=== PATIENT | male | born 1965 | race Two or more races ===

== ENCOUNTER 2017-04-02 10:04 | Inpatient (IN) | payer MEDICAID ==
[~2017-04-02] VITALS: Ht 177.8 cm; Wt 90.5 kg
[~2017-04-02 10:04] MED LIST: LISI-646 PO; METF-370 PO; MULTTAB61 PO; SACC250C PO; [UNRECOGNIZED DRUG - CODE] PO
[2017-04-02 10:44] LABS: Monocytes # (auto) 0.7 uL; Nucleated Red Blood Cells % 0.1 %; Red Cell Distribution Width 15.3 % (11.8-14.3)
[2017-04-02 10:46] LABS: Basophils # (auto) 0.1 uL; Eosinophils # (auto) 0.4 uL; Hematocrit 45.4 % (41.0-53.0); Hemoglobin 15.2 g/dL (13.5-17.5); Lymphocytes # (auto) 2.3 uL; Lymphocytes % (auto) 19.9 % (10.0-50.0); Mean Corpuscular Hemoglobin 26.5 pg (28.0-32.0); Mean Corpuscular Hgb Conc. 33.4 g/dL (32.0-36.0); Mean Corpuscular Volume 79.3 fL (80.0-100.0); Mean Platelet Volume 7.5 fL (6.9-10.8); Monocytes % (auto) 5.9 % (0.0-12.0); Neutrophils # (auto) 8.3 uL; Neutrophils % (auto) 70.2 % (37.0-80.0); Platelet Count (auto) 237 10^3/uL (140-450); White Blood Cell 11.8 10^3/uL (4.4-10.8)
[2017-04-02 11:03] LABS: Albumin 3.4 g/dL (3.4-5.0); Alkaline Phosphatase 131 U/L (45-117); Anion Gap 8 (5-15); Aspartate Aminotransferase 29 U/L (15-37); BUN/Creatinine Ratio 14.7; Bilirubin, Total 0.7 mg/dL (0.2-1.0); Blood Urea Nitrogen 16 mg/dL (7-18); Calcium 8.3 mg/dL (8.5-10.1); Carbon Dioxide 24 mmol/L (21-32); Chloride 103 mmol/L (98-107); GFR African American 92 mL/min; GFR Non-African American 76 mL/min; Glucose 273 mg/dL (74-106); Magnesium 2.4 mg/dL (1.6-2.6); Potassium 3.4 mmol/L (3.5-5.1); Sodium 135 mmol/L (136-145); Total Protein 8.2 g/dL (6.4-8.2)
[2017-04-02 13:49] LABS: B-Type Natriuretic Peptide 9.1 pg/mL (0-100); Temperature: 21.9 C (20.0-25.0)
[2017-04-02] MEDS ORDERED: IOHEXOL 350 MG/ML 100ML IJ ONE ×2 (14:24→15:11)
[2017-04-02] MEDS ORDERED: HEPARIN SODIUM (PORCINE) 5000 UNITS/ML 1ML VIAL IV ONE ×2 (16:45→17:15)
[2017-04-02] MEDS ORDERED: DEXTROSE (50%) 50ML SYRG IV PRN (17:30)
[2017-04-02] MEDS ORDERED: HYDROcodone-ACET 5/325MG TAB PO PRN (17:30)
[2017-04-02] MEDS ORDERED: LORazepam 0.5 MG TAB PO PRN (17:30)
[2017-04-02] MEDS ORDERED: PROMETHAZINE HCL 25 MG/ML 1ML IV PRN (17:30)
[2017-04-02] MEDS ORDERED: MORPHINE SULF INJ 2 MG/ML SYRINGE 1ML IV PRN ×2 (17:30)
[2017-04-02] MEDS ORDERED: TEMAZEPAM 15 MG CAP PO PRN (17:30)
[2017-04-02] MEDS ORDERED: ACETAMINOPHEN 500 MG TAB PO PRN (17:30)
[2017-04-02] MEDS ORDERED: NITROGLYCERIN 0.4 MG SL TAB SL PRN (17:30)
[2017-04-02] MEDS: HEPARIN DRIP/D5W 100UNITS/ML 250 ML IV SCH (17:51)
[2017-04-02] MEDS: LISINOPRIL 20 MG TAB PO SCH (17:53)
[2017-04-02] MEDS: PANTOPRAZOLE 40 MG TAB PO SCH (17:53)
[2017-04-02 18:36] LABS: INR 1.08 (0.9-1.15); Partial Thromboplastin Time 27.3 sec (22.64-33.71); Prothrombin Time 11.8 sec (9.37-12.3)
[2017-04-02] MEDS ORDERED: WARFARIN SODIUM 10 MG TAB PO ONE (19:15)
[2017-04-02] MEDS: InsuLIN REG 1unit/0.01ml Soln (100units/ml) SC SCH (20:00)
[2017-04-02] MEDS: ACCU-CHEK COMFORT CURVE STRIP VI SCH (20:00)
[2017-04-03] MEDS: ACCU-CHEK COMFORT CURVE STRIP VI SCH ×6 (00:25→22:03)
[2017-04-03] MEDS: InsuLIN REG 1unit/0.01ml Soln (100units/ml) SC SCH ×6 (00:28→22:11)
[2017-04-03 01:12] LABS: INR 1.09 (0.9-1.15); Partial Thromboplastin Time 32.5 sec (22.64-33.71); Prothrombin Time 11.9 sec (9.37-12.3)
[2017-04-03] MEDS: HEPARIN DRIP/D5W 100UNITS/ML 250 ML IV SCH ×2 (05:06→14:06)
[2017-04-03 06:33] LABS: Eosinophils # (auto) 0.4 uL; Hemoglobin 13.8 g/dL (13.5-17.5); Lymphocytes # (auto) 2.9 uL; Mean Platelet Volume 7.5 fL (6.9-10.8); Monocytes # (auto) 0.8 uL; Monocytes % (auto) 6.8 % (0.0-12.0); Nucleated Red Blood Cells % 0.1 %
[2017-04-03 06:35] LABS: Basophils # (auto) 0.1 uL; Basophils % (auto) 1.2 % (0.0-2.0); Eosinophils % (auto) 3.2 % (0.0-7.0); Hematocrit 41.4 % (41.0-53.0); Lymphocytes % (auto) 25.9 % (10.0-50.0); Mean Corpuscular Hemoglobin 26.7 pg (28.0-32.0); Mean Corpuscular Hgb Conc. 33.5 g/dL (32.0-36.0); Mean Corpuscular Volume 79.7 fL (80.0-100.0); Neutrophils # (auto) 7.1 uL; Neutrophils % (auto) 62.9 % (37.0-80.0); Platelet Count (auto) 235 10^3/uL (140-450); Red Cell Distribution Width 15.1 % (11.8-14.3); White Blood Cell 11.4 10^3/uL (4.4-10.8)
[2017-04-03 06:45] LABS: INR 1.14 (0.9-1.15); Partial Thromboplastin Time 36.6 sec (22.64-33.71); Prothrombin Time 12.4 sec (9.37-12.3)
[2017-04-03 07:11] LABS: Albumin 3.1 g/dL (3.4-5.0); BUN/Creatinine Ratio 12.3; Bilirubin, Total 0.8 mg/dL (0.2-1.0); Calcium 8.1 mg/dL (8.5-10.1); Potassium 3.4 mmol/L (3.5-5.1); Total Protein 7.3 g/dL (6.4-8.2)
[2017-04-03] MEDS: MULTIPLE VITAMIN TAB PO SCH (10:02)
[2017-04-03] MEDS: LISINOPRIL 20 MG TAB PO SCH (10:02)
[2017-04-03] MEDS: PANTOPRAZOLE 40 MG TAB PO SCH (10:02)
[2017-04-03 12:38] LABS: INR 1.24 (0.9-1.15); Partial Thromboplastin Time 32.1 sec (22.64-33.71); Prothrombin Time 13.6 sec (9.37-12.3)
[2017-04-03] MEDS ORDERED: HEPARIN SODIUM (PORCINE) 5000 UNITS/ML 1ML VIAL IV ONE (14:00)
[2017-04-03] MEDS ORDERED: DEXTROSE (50%) 50ML SYRG IV PRN (14:15)
[2017-04-03] MEDS ORDERED: ALBUTEROL SULF 2.5 MG/0.5ML(0.5%) NEB SOLN NEB PRN (14:15)
[2017-04-03 16:12] VITALS: BP 161/114
[2017-04-03] MEDS ORDERED: WARFARIN SODIUM 10 MG TAB PO ONE (17:00)
[2017-04-03 19:28] LABS: INR 1.46 (0.9-1.15); Partial Thromboplastin Time 43.1 sec (22.64-33.71)
[2017-04-03 21:31] LABS: Urine Bilirubin Negative (Negative); Urine Blood Negative /uL (Negative); Urine Color Yellow (Yellow); Urine Glucose Normal (Normal); Urine Ketone Negative (Negative); Urine Nitrite Negative (Negative); Urine RBC <1 /hpf (0 - 3); Urine Squamous Epithelial Cell FEW /hpf (<5); Urine Urobilinogen Normal (Negative); Urine pH 5.5 (5.0-8.0)
[2017-04-04] MEDS: HEPARIN DRIP/D5W 100UNITS/ML 250 ML IV SCH ×2 (01:09→11:23)
[2017-04-04 01:36] LABS: INR 1.96 (0.9-1.15); Partial Thromboplastin Time 53.9 sec (22.64-33.71); Prothrombin Time 21.5 sec (9.37-12.3)
[2017-04-04] MEDS: ACCU-CHEK COMFORT CURVE STRIP VI SCH ×4 (06:34→22:00)
[2017-04-04] MEDS: InsuLIN REG 1unit/0.01ml Soln (100units/ml) SC SCH ×3 (06:37→16:13)
[2017-04-04 08:19] LABS: Basophils # (auto) 0.1 uL; Basophils % (auto) 1.1 % (0.0-2.0); Hemoglobin 14.4 g/dL (13.5-17.5); Monocytes # (auto) 0.6 uL; Nucleated Red Blood Cells % 0.1 %
[2017-04-04 08:20] LABS: Eosinophils # (auto) 0.2 uL; Hematocrit 43.7 % (41.0-53.0); Lymphocytes # (auto) 2.7 uL; Lymphocytes % (auto) 24.7 % (10.0-50.0); Mean Corpuscular Hemoglobin 26.2 pg (28.0-32.0); Mean Corpuscular Volume 79.5 fL (80.0-100.0); Mean Platelet Volume 7.7 fL (6.9-10.8); Monocytes % (auto) 5.8 % (0.0-12.0); Neutrophils # (auto) 7.2 uL; Neutrophils % (auto) 66.4 % (37.0-80.0); Platelet Count (auto) 277 10^3/uL (140-450); Red Cell Distribution Width 15.2 % (11.8-14.3); White Blood Cell 10.8 10^3/uL (4.4-10.8)
[2017-04-04 08:38] LABS: BUN/Creatinine Ratio 10.7; Bilirubin, Total 0.5 mg/dL (0.2-1.0); Potassium 3.4 mmol/L (3.5-5.1); Total Protein 7.3 g/dL (6.4-8.2)
[2017-04-04 08:42] LABS: INR 2.57 (0.9-1.15); Partial Thromboplastin Time 56.5 sec (22.64-33.71); Prothrombin Time 28.3 sec (9.37-12.3)
[2017-04-04] MEDS: MULTIPLE VITAMIN TAB PO SCH (10:04)
[2017-04-04] MEDS: PANTOPRAZOLE 40 MG TAB PO SCH (10:05)
[2017-04-04] MEDS: LISINOPRIL 20 MG TAB PO SCH (10:05)
[2017-04-04] MEDS ORDERED: POTASSIUM CHL 20 Meq TABLET PO ONE (11:30)
[2017-04-04 16:12] LABS: INR 2.82 (0.9-1.15); Partial Thromboplastin Time 58.3 sec (22.64-33.71); Prothrombin Time 31.1 sec (9.37-12.3)
[2017-04-04] MEDS ORDERED: HEPARIN DRIP/D5W 100UNITS/ML 250 ML IV SCH (16:45)
[2017-04-04] MEDS ORDERED: WARFARIN SODIUM 2.5 MG TAB PO ONE (17:00)
[2017-04-04] MEDS: metFORMIN HYDROCHLORIDE 500 MG TAB PO SCH (17:08)
[2017-04-04 23:29] LABS: INR 3.06 (0.9-1.15); Prothrombin Time 33.7 sec (9.37-12.3)
[2017-04-05] MEDS: InsuLIN REG 1unit/0.01ml Soln (100units/ml) SC SCH ×5 (00:25→21:47)
[2017-04-05 00:50] VITALS: BP 113/64
[2017-04-05 05:15] LABS: Basophils # (auto) 0.1 uL; Eosinophils # (auto) 0.3 uL; Lymphocytes # (auto) 2.8 uL; Mean Corpuscular Volume 79.7 fL (80.0-100.0); Monocytes # (auto) 0.6 uL; Nucleated Red Blood Cells % 0.1 %
[2017-04-05 05:18] LABS: Basophils % (auto) 1.3 % (0.0-2.0); Eosinophils % (auto) 2.9 % (0.0-7.0); Hematocrit 41.5 % (41.0-53.0); Hemoglobin 13.8 g/dL (13.5-17.5); Lymphocytes % (auto) 28.7 % (10.0-50.0); Mean Corpuscular Hemoglobin 26.5 pg (28.0-32.0); Mean Corpuscular Hgb Conc. 33.3 g/dL (32.0-36.0); Mean Platelet Volume 7.6 fL (6.9-10.8); Monocytes % (auto) 6.6 % (0.0-12.0); Neutrophils # (auto) 5.8 uL; Neutrophils % (auto) 60.5 % (37.0-80.0); Platelet Count (auto) 263 10^3/uL (140-450); Red Cell Distribution Width 15.3 % (11.8-14.3); White Blood Cell 9.6 10^3/uL (4.4-10.8)
[2017-04-05 05:29] LABS: Calcium 8.2 mg/dL (8.5-10.1); Potassium 3.4 mmol/L (3.5-5.1)
[2017-04-05 05:32] LABS: BUN/Creatinine Ratio 10.2
[2017-04-05 05:43] LABS: INR 3.16 (0.9-1.15); Prothrombin Time 34.8 sec (9.37-12.3)
[2017-04-05 05:46] LABS: Partial Thromboplastin Time 115.8 sec (22.64-33.71)
[2017-04-05] MEDS: metFORMIN HYDROCHLORIDE 500 MG TAB PO SCH ×2 (06:43→17:41)
[2017-04-05] MEDS: ACCU-CHEK COMFORT CURVE STRIP VI SCH ×4 (06:44→21:47)
[2017-04-05] MEDS: PANTOPRAZOLE 40 MG TAB PO SCH (09:49)
[2017-04-05] MEDS: MULTIPLE VITAMIN TAB PO SCH (09:49)
[2017-04-05] MEDS: LISINOPRIL 20 MG TAB PO SCH (10:00)
[2017-04-05] MEDS ORDERED: POTASSIUM CHL 20 Meq TABLET PO ONE (10:00)
[2017-04-05 12:00] VITALS: BP 115/55
[2017-04-05 17:59] VITALS: BP 139/67
[2017-04-05 22:00] VITALS: BP 104/54
[2017-04-06 05:00] VITALS: BP 114/66
[2017-04-06] MEDS: metFORMIN HYDROCHLORIDE 500 MG TAB PO SCH (06:20)
[2017-04-06] MEDS: ACCU-CHEK COMFORT CURVE STRIP VI SCH ×2 (06:24→11:27)
[2017-04-06] MEDS: InsuLIN REG 1unit/0.01ml Soln (100units/ml) SC SCH ×2 (06:24→11:27)
[2017-04-06 06:46] LABS: INR 2.01 (0.9-1.15); Prothrombin Time 22.1 sec (9.37-12.3)
[2017-04-06 08:35] VITALS: BP 129/71
[2017-04-06] MEDS: PANTOPRAZOLE 40 MG TAB PO SCH (08:49)
[2017-04-06] MEDS: MULTIPLE VITAMIN TAB PO SCH (08:49)
[2017-04-06] MEDS: LISINOPRIL 20 MG TAB PO SCH (08:51)
[2017-04-06 11:43] VITALS: BP 129/79
[2017-04-06 13:09] VITALS: BP 123/60
[2017-04-06] MEDS ORDERED: WARFARIN SODIUM 2 MG TAB PO ONE (17:00)
[2017-04-07 10:07] LABS: PTT-LA Mix 62.8 sec (0.0-48.9)
[2017-04-07 11:06] LABS: Protein S Antigen Free 104 % (57-157); Proten S Antigen Total 92 % (60-150)
== END 2017-04-06 14:00 | disposition home or self-care (01) | DRG 134 ==
LOC: ER 10:04 → TELE 10:05 → DOU IN ICU 04-04 23:26 → TELE-EAST 04-05 13:11
PROVIDERS: ADMIT Internal Medicine; ATTEND Internal Medicine
DX: I26.99 Other pulmonary embolism without acute cor pulmonale (principal); J96.00 Acute respiratory failure, unspecified whether with hypoxia or hypercapnia; I27.21 Secondary pulmonary arterial hypertension; R65.10 Systemic inflammatory response syndrome (SIRS) of non-infectious origin without acute organ dysfunction; E11.65 Type 2 diabetes mellitus with hyperglycemia; L97.919 Non-pressure chronic ulcer of unspecified part of right lower leg with unspecified severity; E66.01 Morbid (severe) obesity due to excess calories; I10 Essential (primary) hypertension; E87.6 Hypokalemia; Z79.01 Long term (current) use of anticoagulants; Z88.1 Allergy status to other antibiotic agents; Z88.8 Allergy status to other drugs, medicaments and biological substances; Z68.28 Body mass index [BMI] 28.0-28.9, adult; Z86.711 Personal history of pulmonary embolism; Z86.718 Personal history of other venous thrombosis and embolism; Z83.3 Family history of diabetes mellitus; Z82.49 Family history of ischemic heart disease and other diseases of the circulatory system
CPT/HCPCS: 36415; 71020; 71275; 80048; 80053; 80061; 81001; 81241; 82962; 83036; 83735; 83880; 84132; 84484; 85025; 85302; 85305; 85306; 85379; 85610; 85613; 85670; 85705; 85730; 85732; 87081; 93005; 93306; 93970; 96374; 99291; J1815

== ENCOUNTER 2017-05-12 10:34 | Emergency (ER) | payer MEDICAID ==
[~2017-05-12] VITALS: Ht 175.3 cm; Wt 124.3 kg
[~2017-05-12 10:34] MED LIST changes: -SACC250C PO; -[UNRECOGNIZED DRUG - CODE] PO
[2017-05-12 10:57] VITALS: BP 127/68
[2017-05-12 12:25] LABS: Basophils # (auto) 0.1 uL; Eosinophils # (auto) 0.4 uL; Eosinophils % (auto) 3.2 % (0.0-7.0); Nucleated Red Blood Cells % 0.1 %; White Blood Cell 13.3 10^3/uL (4.4-10.8)
[2017-05-12 12:27] LABS: Basophils % (auto) 0.4 % (0.0-2.0); Lymphocytes # (auto) 2.3 uL; Mean Corpuscular Hemoglobin 25.8 pg (28.0-32.0); Mean Corpuscular Hgb Conc. 32.6 g/dL (32.0-36.0); Mean Corpuscular Volume 79.1 fL (80.0-100.0); Monocytes % (auto) 7.7 % (0.0-12.0); Neutrophils # (auto) 9.5 uL; Neutrophils % (auto) 71.7 % (37.0-80.0); Platelet Count (auto) 352 10^3/uL (140-450); Red Cell Distribution Width 16.4 % (11.8-14.3)
[2017-05-12 12:35] LABS: INR 1.3 (0.9-1.15); Prothrombin Time 14.2 sec (9.37-12.3)
[2017-05-12 12:47] LABS: Alanine Aminotransferase 60 U/L (16-61); Albumin 3.8 g/dL (3.4-5.0); Alkaline Phosphatase 112 U/L (45-117); Anion Gap 9 (5-15); Aspartate Aminotransferase 27 U/L (15-37); BUN/Creatinine Ratio 13.3; Bilirubin, Total 0.5 mg/dL (0.2-1.0); Blood Urea Nitrogen 15 mg/dL (7-18); Calcium 8.7 mg/dL (8.5-10.1); Carbon Dioxide 26 mmol/L (21-32); Chloride 107 mmol/L (98-107); GFR African American 89 mL/min; GFR Non-African American 73 mL/min; Glucose 160 mg/dL (74-106); Sodium 142 mmol/L (136-145); Total Protein 8.5 g/dL (6.4-8.2)
== END 2017-05-12 23:19 | disposition left against medical advice (07) ==
LOC: ER 10:34
DX: R06.02 Shortness of breath (principal); R05 Cough; Z53.21 Procedure and treatment not carried out due to patient leaving prior to being seen by health care provider
CPT/HCPCS: 36415; 71020; 80053; 83880; 84484; 85025; 85379; 85610; 85730; 93005

== ENCOUNTER 2017-05-15 16:17 | Emergency (ER) | payer MEDICAID ==
[~2017-05-15] VITALS: Ht 175.3 cm; Wt 147.9 kg
[2017-05-15 17:52] LABS: Basophils # (auto) 0.1 uL; Hemoglobin 15.6 g/dL (13.5-17.5); Lymphocytes # (auto) 1.1 uL; Neutrophils # (auto) 9.3 uL; Nucleated Red Blood Cells % 0.1 %; Red Blood Cells 5.96 10^6/uL (4.5-5.90); White Blood Cell 11.8 10^3/uL (4.4-10.8)
[2017-05-15 17:53] LABS: Basophils % (auto) 1.1 % (0.0-2.0); Eosinophils # (auto) 0.2 uL; Eosinophils % (auto) 2.1 % (0.0-7.0); Hematocrit 47.6 % (41.0-53.0); Lymphocytes % (auto) 9.5 % (10.0-50.0); Mean Corpuscular Hemoglobin 26.1 pg (28.0-32.0); Mean Corpuscular Hgb Conc. 32.7 g/dL (32.0-36.0); Mean Corpuscular Volume 79.9 fL (80.0-100.0); Monocytes % (auto) 8.3 % (0.0-12.0); Platelet Count (auto) 339 10^3/uL (140-450); Red Cell Distribution Width 16.2 % (11.8-14.3)
[2017-05-15 18:04] LABS: Albumin 3.7 g/dL (3.4-5.0); BUN/Creatinine Ratio 11.1; Calcium 8.8 mg/dL (8.5-10.1); Potassium 3.8 mmol/L (3.5-5.1)
[2017-05-15 18:10] LABS: Bilirubin, Total 0.4 mg/dL (0.2-1.0); Total Protein 8.6 g/dL (6.4-8.2)
[2017-05-15] MEDS ORDERED: cefTRIAXone W LIDOCAINE 1 GM IM IM ONE (20:00)
[2017-05-15] MEDS ORDERED: LIDOCAINE 1% HCL (LOCAL ANESTH.) INJ 20ML MDV ONE (20:12)
[2017-05-15] MEDS ORDERED: cefTRIAXone SOD 1,000 MG VL ONE (20:12)
[2017-05-15 20:24] VITALS: BP 121/53
== END 2017-05-15 20:52 | disposition home or self-care (01) ==
LOC: ER 16:22
DX: J06.9 Acute upper respiratory infection, unspecified (principal); E11.9 Type 2 diabetes mellitus without complications; I10 Essential (primary) hypertension; E78.5 Hyperlipidemia, unspecified; Z86.718 Personal history of other venous thrombosis and embolism; Z86.711 Personal history of pulmonary embolism; Z79.01 Long term (current) use of anticoagulants
CPT/HCPCS: 36415; 71046; 80053; 85025; 85379; 96372; 99285; J0696; J2001

== ENCOUNTER 2020-04-04 15:25 | Emergency (ER) | payer MEDICAID ==
[~2020-04-04] VITALS: Ht 177.8 cm; Wt 111.1 kg
[~2020-04-04 15:25] MED LIST changes: +MULT-1018 PO; -MULTTAB61 PO
[2020-04-04 15:39] VITALS: BP 129/68
[2020-04-04 16:58] LABS: Basophils # (auto) 0 10 ^3/uL (0-0.2); Eosinophils # (auto) 0.1 10 ^3/uL (0-0.8); Hemoglobin 16.9 g/dL (13.5-17.5); Lymphocytes # (auto) 1.4 10 ^3/uL (0.4-5.4); Nucleated Red Blood Cells % 0.3 %; Red Cell Distribution Width 14.7 % (11.8-14.3)
[2020-04-04 17:00] LABS: Basophils % (auto) 0.8 % (0.0-2.0); Eosinophils % (auto) 1.4 % (0.0-7.0); Hematocrit 50.1 % (41.0-53.0); Lymphocytes % (auto) 22.3 % (10.0-50.0); Mean Corpuscular Hemoglobin 27.5 pg (28.0-32.0); Mean Corpuscular Hgb Conc. 33.7 g/dL (32.0-36.0); Mean Corpuscular Volume 81.7 fL (80.0-100.0); Monocytes # (auto) 0.6 10 ^3/uL (0-1.3); Monocytes % (auto) 9.1 % (0.0-12.0); Neutrophils # (auto) 4.2 10 ^3/uL (1.6-8.6); Neutrophils % (auto) 66.4 % (37.0-80.0); Platelet Count (auto) 202 10^3/uL (140-450); Red Blood Cells 6.13 10^6/uL (4.5-5.90); White Blood Cell 6.3 10^3/uL (4.4-10.8)
[2020-04-04 17:10] LABS: INR 1.26 (0.9-1.15); Partial Thromboplastin Time 40.6 sec (23.0-31.2)
[2020-04-04 17:11] LABS: Albumin 3.3 g/dL (3.4-5.0); BUN/Creatinine Ratio 7.4; Calcium 8.1 mg/dL (8.5-10.1); Potassium 4.3 mmol/L (3.5-5.1)
[2020-04-04 17:14] LABS: Bilirubin, Total 0.4 mg/dL (0.2-1.0); Total Protein 8.5 g/dL (6.4-8.2)
[2020-04-04] MEDS ORDERED: InsuLIN REG 1unit/0.01ml Soln (100units/ml) SC ONE (19:45)
== END 2020-04-04 20:10 | disposition left against medical advice (07) ==
LOC: ER 15:25
DX: R04.1 Hemorrhage from throat (principal); Z53.21 Procedure and treatment not carried out due to patient leaving prior to being seen by health care provider
CPT/HCPCS: 36415; 80053; 85025; 85610; 85730

== ENCOUNTER 2020-04-08 12:46 | Inpatient (IN) | payer MEDICAID ==
[~2020-04-08] VITALS: Ht 175.3 cm; Wt 134.7 kg
[2020-04-08 15:54] LABS: Eosinophils # (auto) 0 10 ^3/uL (0-0.8); Lymphocytes # (auto) 1.6 10 ^3/uL (0.4-5.4); Monocytes # (auto) 0.7 10 ^3/uL (0-1.3); Nucleated Red Blood Cells % 0.1 %
[2020-04-08 15:55] LABS: Basophils # (auto) 0 10 ^3/uL (0-0.2); Basophils % (auto) 0.4 % (0.0-2.0); Eosinophils % (auto) 0.2 % (0.0-7.0); Hematocrit 52.5 % (41.0-53.0); Hemoglobin 17.3 g/dL (13.5-17.5); Lymphocytes % (auto) 16.8 % (10.0-50.0); Mean Corpuscular Volume 81.7 fL (80.0-100.0); Monocytes % (auto) 7.7 % (0.0-12.0); Neutrophils # (auto) 7.1 10 ^3/uL (1.6-8.6); Neutrophils % (auto) 74.9 % (37.0-80.0); Platelet Count (auto) 210 10^3/uL (140-450); Red Blood Cells 6.42 10^6/uL (4.5-5.90); Red Cell Distribution Width 14.4 % (11.8-14.3); White Blood Cell 9.5 10^3/uL (4.4-10.8)
[2020-04-08 16:03] LABS: Alanine Aminotransferase 97 U/L (16-61); Albumin 3.4 g/dL (3.4-5.0); Anion Gap 7 (5-15); Aspartate Aminotransferase 39 U/L (15-37); Blood Urea Nitrogen 9 mg/dL (7-18); Calcium 8.4 mg/dL (8.5-10.1); Carbon Dioxide 26 mmol/L (21-32); Chloride 99 mmol/L (98-107); GFR African American 101 mL/min; GFR Non-African American 83 mL/min; Glucose 244 mg/dL (74-106); Magnesium 2.2 mg/dL (1.6-2.6); Potassium 3.7 mmol/L (3.5-5.1); Sodium 132 mmol/L (136-145)
[2020-04-08 16:08] LABS: Alkaline Phosphatase 176 U/L (45-117); Bilirubin, Total 0.7 mg/dL (0.2-1.0); Total Protein 9.4 g/dL (6.4-8.2)
[2020-04-08 16:13] LABS: INR 1.12 (0.9-1.15); Partial Thromboplastin Time 33.9 sec (23.0-31.2)
[2020-04-08] MEDS ORDERED: ONDANSETRON HCL 4 MG/2 ML VIAL IV PRN (19:45)
[2020-04-08] MEDS ORDERED: HYDROcodone-ACET 5/325MG TAB PO PRN (19:45)
[2020-04-08] MEDS ORDERED: hydrALAZINE HCL 20 MG/ML VL IV PRN (19:45)
[2020-04-08] MEDS ORDERED: NITROGLYCERIN 0.4 MG SL TAB SL PRN (19:45)
[2020-04-08] MEDS ORDERED: MORPHINE SULF INJ 2 MG/ML SYRINGE 1ML IV PRN ×2 (19:45)
[2020-04-08] MEDS ORDERED: ACETAMINOPHEN 500 MG TAB PO PRN (19:45)
[2020-04-08] MEDS ORDERED: DEXTROSE (50%) 50ML SYRG IV PRN (19:45)
[2020-04-08] MEDS ORDERED: FUROSEMIDE 20 MG/2 ML VIAL IV ONE (20:07)
[2020-04-08 20:28] LABS: CRP High Sensitivity 4.9 mg/dL (< 0.3)
[2020-04-08] MEDS: ACCU-CHEK COMFORT CURVE STRIP VI SCH (21:32)
[2020-04-08] MEDS: InsuLIN REG 1unit/0.01ml Soln (100units/ml) SC SCH (22:00)
[2020-04-08] MEDS: ALBUTEROL SULF HFA 90MCG INH 200DOSE IN SCH (22:00)
[2020-04-08] MEDS: METOPROLOL TARTRATE 25 MG TAB PO SCH (22:12)
[2020-04-08 23:00] LABS: Urine WBC None Seen /hpf (0 - 3)
[2020-04-08 23:12] LABS: Urine Bacteria NONE SEEN /hpf (None Seen); Urine Blood Negative /uL (Negative); Urine Specific Gravity 1.004 (1.001-1.035)
[2020-04-08 23:52] VITALS: BP 108/52
[2020-04-09] MEDS ORDERED: RIVA20TA PO (01:19)
[2020-04-09 03:54] VITALS: BP 108/52
[2020-04-09] MEDS: ALBUTEROL SULF HFA 90MCG INH 200DOSE IN SCH ×4 (06:00→21:30)
[2020-04-09] MEDS: ACCU-CHEK COMFORT CURVE STRIP VI SCH ×4 (06:21→22:02)
[2020-04-09] MEDS: InsuLIN REG 1unit/0.01ml Soln (100units/ml) SC SCH ×4 (06:27→22:07)
[2020-04-09 06:39] LABS: Basophils # (auto) 0.1 10 ^3/uL (0-0.2); Eosinophils # (auto) 0 10 ^3/uL (0-0.8); Hemoglobin 15.4 g/dL (13.5-17.5); Monocytes # (auto) 0.6 10 ^3/uL (0-1.3); Nucleated Red Blood Cells % 0.1 %; Red Cell Distribution Width 14.4 % (11.8-14.3)
[2020-04-09 06:43] LABS: Eosinophils % (auto) 0.6 % (0.0-7.0); Hematocrit 46.9 % (41.0-53.0); Lymphocytes # (auto) 1.8 10 ^3/uL (0.4-5.4); Lymphocytes % (auto) 26.6 % (10.0-50.0); Mean Corpuscular Hemoglobin 26.8 pg (28.0-32.0); Mean Corpuscular Hgb Conc. 32.9 g/dL (32.0-36.0); Mean Corpuscular Volume 81.4 fL (80.0-100.0); Monocytes % (auto) 8.8 % (0.0-12.0); Neutrophils # (auto) 4.4 10 ^3/uL (1.6-8.6); Platelet Count (auto) 195 10^3/uL (140-450); Red Blood Cells 5.76 10^6/uL (4.5-5.90)
[2020-04-09 06:56] LABS: Albumin 2.9 g/dL (3.4-5.0); BUN/Creatinine Ratio 11.5; Calcium 8.1 mg/dL (8.5-10.1); Potassium 3.9 mmol/L (3.5-5.1)
[2020-04-09 06:59] LABS: Bilirubin, Total 0.7 mg/dL (0.2-1.0); Total Protein 7.9 g/dL (6.4-8.2)
[2020-04-09] MEDS: ASCORBIC ACID 1,000 MG TAB PO SCH (09:32)
[2020-04-09] MEDS: ZINC SULFATE 220mg CAP or TAB PO SCH (09:32)
[2020-04-09] MEDS: METOPROLOL TARTRATE 25 MG TAB PO SCH ×2 (09:32→22:01)
[2020-04-09] MEDS: CHOLECALCIFEROL (VITD3) 2,000 UNIT CAP PO SCH (09:33)
[2020-04-09] MEDS ORDERED: ENOXAPARIN SOD 40 MG/0.4 ML SYRINGE SC SCH (10:00)
[2020-04-09] MEDS ORDERED: ASPirin 81 mg TAB PO SCH (10:00)
[2020-04-09 12:39] VITALS: BP 127/63
[2020-04-09] MEDS: FUROSEMIDE 40 MG/4 ML VIAL IV SCH (14:11)
[2020-04-09 16:35] VITALS: BP 124/70
[2020-04-09] MEDS: APIXABAN 5 MG TAB PO SCH (22:01)
[2020-04-09 22:08] VITALS: BP 115/74
[2020-04-10 05:14] VITALS: BP 107/67
[2020-04-10] MEDS: ALBUTEROL SULF HFA 90MCG INH 200DOSE IN SCH (06:01)
[2020-04-10] MEDS: ACCU-CHEK COMFORT CURVE STRIP VI SCH ×2 (06:25→11:30)
[2020-04-10] MEDS: InsuLIN REG 1unit/0.01ml Soln (100units/ml) SC SCH ×2 (06:35→11:30)
[2020-04-10 07:29] LABS: Basophils # (auto) 0.1 10 ^3/uL (0-0.2); Basophils % (auto) 0.9 % (0.0-2.0); Eosinophils # (auto) 0.1 10 ^3/uL (0-0.8); Eosinophils % (auto) 2.4 % (0.0-7.0); Hematocrit 45.9 % (41.0-53.0); Hemoglobin 15.6 g/dL (13.5-17.5); Lymphocytes # (auto) 2.4 10 ^3/uL (0.4-5.4); Lymphocytes % (auto) 39.9 % (10.0-50.0); Mean Corpuscular Hgb Conc. 33.9 g/dL (32.0-36.0); Mean Corpuscular Volume 79.7 fL (80.0-100.0); Monocytes # (auto) 0.6 10 ^3/uL (0-1.3); Monocytes % (auto) 9.5 % (0.0-12.0); Neutrophils # (auto) 2.9 10 ^3/uL (1.6-8.6); Neutrophils % (auto) 47.3 % (37.0-80.0); Nucleated Red Blood Cells % 0.2 %; Platelet Count (auto) 217 10^3/uL (140-450); Red Blood Cells 5.76 10^6/uL (4.5-5.90); Red Cell Distribution Width 14.2 % (11.8-14.3); White Blood Cell 6.1 10^3/uL (4.4-10.8)
[2020-04-10 07:33] LABS: BUN/Creatinine Ratio 14.5; Calcium 7.8 mg/dL (8.5-10.1); Magnesium 2.3 mg/dL (1.6-2.6); Potassium 3.6 mmol/L (3.5-5.1)
[2020-04-10 08:48] VITALS: BP 112/66
[2020-04-10 09:21] LABS: CRP High Sensitivity 2.36 mg/dL (< 0.3)
[2020-04-10] MEDS: ZINC SULFATE 220mg CAP or TAB PO SCH (09:29)
[2020-04-10] MEDS: FUROSEMIDE 40 MG/4 ML VIAL IV SCH (09:29)
[2020-04-10] MEDS: ASCORBIC ACID 1,000 MG TAB PO SCH (09:30)
[2020-04-10] MEDS: APIXABAN 5 MG TAB PO SCH (09:30)
[2020-04-10] MEDS: CHOLECALCIFEROL (VITD3) 2,000 UNIT CAP PO SCH (09:30)
[2020-04-10] MEDS: METOPROLOL TARTRATE 25 MG TAB PO SCH (09:31)
[2020-04-10 10:35] VITALS: BP 112/66
[2020-04-10 12:28] VITALS: BP 114/81
== END 2020-04-10 12:20 | disposition home or self-care (01) | DRG 137 ==
LOC: ER 12:46 → TELE 12:47 → TELE-EAST 22:50
PROVIDERS: ADMIT Nurse Practitioner Acute Care; ATTEND Nurse Practitioner Acute Care
DX: U07.1 COVID-19 (principal); J12.89 Other viral pneumonia; J96.01 Acute respiratory failure with hypoxia; I50.23 Acute on chronic systolic (congestive) heart failure; Z68.41 Body mass index [BMI] 40.0-44.9, adult; E11.65 Type 2 diabetes mellitus with hyperglycemia; E66.01 Morbid (severe) obesity due to excess calories; E78.5 Hyperlipidemia, unspecified; I20.0 Unstable angina; I11.0 Hypertensive heart disease with heart failure; K06.8 Other specified disorders of gingiva and edentulous alveolar ridge; T45.515A Adverse effect of anticoagulants, initial encounter; Z79.01 Long term (current) use of anticoagulants; Z79.84 Long term (current) use of oral hypoglycemic drugs; Z79.899 Other long term (current) drug therapy; Z82.49 Family history of ischemic heart disease and other diseases of the circulatory system; Z83.3 Family history of diabetes mellitus; Z86.711 Personal history of pulmonary embolism; Z86.718 Personal history of other venous thrombosis and embolism; Y92.89 Other specified places as the place of occurrence of the external cause; Z88.1 Allergy status to other antibiotic agents; Z88.8 Allergy status to other drugs, medicaments and biological substances; Z88.5 Allergy status to narcotic agent; Z88.6 Allergy status to analgesic agent
CPT/HCPCS: 36415; 71045; 80048; 80053; 81001; 82728; 82962; 83036; 83615; 83735; 83880; 84443; 84484; 85025; 85379; 85610; 85730; 86141; 87040; 87426; 87804; 94640; 96374; G0378; J1815

== ENCOUNTER 2021-03-27 12:47 | Emergency (ER) | payer MEDICAID ==
[~2021-03-27] VITALS: Ht 175.3 cm; Wt 120.2 kg
[~2021-03-27 12:47] MED LIST changes: -LISI-646 PO; +LISI20TA28 PO
[2021-03-27 13:45] LABS: Urine Bacteria NONE SEEN /hpf (None Seen); Urine Blood Negative /uL (Negative); Urine Specific Gravity 1.033 (1.001-1.035); Urine WBC <1 /hpf (0 - 3)
[2021-03-27 13:47] LABS: Basophils # (auto) 0.1 10 ^3/uL (0-0.2); Eosinophils # (auto) 0.3 10 ^3/uL (0-0.8); Eosinophils % (auto) 2.8 % (0.0-7.0); Hemoglobin 17.2 g/dL (13.5-17.5); Monocytes # (auto) 0.6 10 ^3/uL (0-1.3); Monocytes % (auto) 5.3 % (0.0-12.0); Nucleated Red Blood Cells % 0.2 %
[2021-03-27 13:49] LABS: Basophils % (auto) 1.2 % (0.0-2.0); Hematocrit 52.2 % (41.0-53.0); Mean Corpuscular Hemoglobin 26.6 pg (28.0-32.0); Mean Corpuscular Hgb Conc. 32.9 g/dL (32.0-36.0); Mean Corpuscular Volume 80.9 fL (80.0-100.0); Neutrophils # (auto) 6.7 10 ^3/uL (1.6-8.6); Neutrophils % (auto) 62.7 % (37.0-80.0); Red Blood Cells 6.46 10^6/uL (4.5-5.90); Red Cell Distribution Width 14.7 % (11.8-14.3); White Blood Cell 10.6 10^3/uL (4.4-10.8)
[2021-03-27 13:51] LABS: Potassium 4.3 mmol/L (3.5-5.1)
[2021-03-27 13:58] LABS: Albumin 3.1 g/dL (3.4-5.0); BUN/Creatinine Ratio 13.6; Bilirubin, Total 0.2 mg/dL (0.2-1.0); Calcium 8.5 mg/dL (8.5-10.1); Total Protein 8.1 g/dL (6.4-8.2)
[2021-03-27] MEDS ORDERED: SODIUM CHLORIDE 0.9% 1,000 ML IV ONE ×2 (14:45)
[2021-03-27] MEDS ORDERED: InsuLIN REG 1unit/0.01ml Soln (100units/ml) IV ONE ×2 (14:45)
[2021-03-27 15:44] VITALS: BP 140/78
== END 2021-03-27 16:25 | disposition home or self-care (01) ==
LOC: ER 12:47
DX: E11.65 Type 2 diabetes mellitus with hyperglycemia (principal); H00.021 Hordeolum internum right upper eyelid; I10 Essential (primary) hypertension; E11.9 Type 2 diabetes mellitus without complications; E78.5 Hyperlipidemia, unspecified; Z79.84 Long term (current) use of oral hypoglycemic drugs; Z79.899 Other long term (current) drug therapy; Z88.1 Allergy status to other antibiotic agents; Z88.8 Allergy status to other drugs, medicaments and biological substances
CPT/HCPCS: 36415; 80053; 81001; 83735; 85025; 96361; 96374; 99283; J1815; J7030

== ENCOUNTER 2023-10-07 09:09 | Emergency (ER) | payer MEDICAID ==
[~2023-10-07] VITALS: Ht 205.7 cm; Wt 113.1 kg
[~2023-10-07 09:09] MED LIST changes: -LISI20TA28 PO; +LISI20TA56 PO
[2023-10-07 09:32] VITALS: BP 142/91; PULSE 95; RESP 18; TEMP 98.3; O2SAT 96
[2023-10-07] MEDS ORDERED: LIDO2SOL26 MT (09:37)
[2023-10-07] MEDS ORDERED: AZIT500T66 PO (09:37)
[2023-10-07] MEDS: cefTRIAXone SOD 1,000 MG VL IM ONE (09:40)
== END 2023-10-07 09:51 | disposition home or self-care (01) ==
LOC: ER 09:09
DX: J03.90 Acute tonsillitis, unspecified (principal); E11.9 Type 2 diabetes mellitus without complications; E78.5 Hyperlipidemia, unspecified; I10 Essential (primary) hypertension; F15.10 Other stimulant abuse, uncomplicated; Z88.6 Allergy status to analgesic agent; Z88.8 Allergy status to other drugs, medicaments and biological substances
CPT/HCPCS: 96372; 99283; J0696

== ENCOUNTER 2024-07-19 21:12 | Emergency (ER) | payer MEDICAID ==
[~2024-07-19] VITALS: Ht 175.3 cm; Wt 117.7 kg
[~2024-07-19 21:12] MED LIST changes: +AZIT500T66 PO; +LIDO2SOL26 MT
--- NOTE | 2024-07-19 21:54 | ED.PDOC ---
History of Present Illness HPI Comments 58 year old male came to ER due to shortness of breath. Patient has history of diabetes and PE/ DVT right leg. He used to be on Eliquis but was discontinued by his PCP 8 months ago. Yesterday, patient started experiencing chest tightness associated with shortness of breath. Patient states he had similar symptoms before when he got diagnosed with PE. Patient saturating at 96% on room air at this time. Chief Complaint: Shortness of Breath Time Seen by MD: 21:53 Primary Care Provider: Jigar Reviewed Notes: Nurses Notes Allergies: Coded Allergies: Bacitracin (Verified Allergy, Unknown, 04/02/17) Hydrocortisone (Verified Allergy, Unknown, 04/02/17) Neomycin (Verified Allergy, Unknown, 04/02/17) Polymyxin B (Verified Allergy, Unknown, 04/02/17) Home Meds Active Scripts Metformin Hydrochloride (Metformin Hcl) 500 Mg Tab, 500 MG PO DAILY for 15 Days, #15 TAB Prov:WENCESLAO GLEASON MD 07/20/24 Lidocaine HCl (Mouth-Throat) (Lidocaine HCl Viscous) 2 % Wendi, 5 ML MT TID, #100 ML Prov:LARS YEAGER 10/07/23 Azithromycin (Azithromycin) 500 Mg Tab, 1 TAB PO DAILY, #5 TAB Prov:LARS YEAGER 10/07/23 Lisinopril (Lisinopril) 20 Mg Tab, 20 MG PO DAILY, #30 TAB Prov:KISHAN HE MD 09/09/16 Metformin Hydrochloride (Metformin Hcl) 500 Mg Tab, 1 TAB PO BID, #60 TAB Prov:KISHAN HE MD 09/09/16 Reported Medications Multiple Vitamin (Multivitamins) Tab, 1 TAB PO DAILY, #90 TAB 3 Refills 03/24/14 Information Source: Patient Mode of Arrival: Ambulatory Severity: Moderate Timing: Days Duration: Intermittent Review of Systems REVIEW OF SYSTEMS: No fever, no chills, or fatigue HEENT: No sore throat, no earache, no congestion, no neck pain. Cardiac: No chest pain. No palpitations. Lungs: (+) shortness of breath, no cough. GI: No nausea, no vomiting, no diarrhea, no constipation, no abdominal pain : No dysuria, frequency, or urgency. No hematuria. Musculoskeletal: No joint pain , no joint swelling, no extremity edema. Skin: No rash, no itching. Neuro: No headache, no dizziness, no weakness Vital Signs Vital Signs Date Time Temp Pulse Resp B/P (MAP) Pulse Ox O2 Delivery O2 Flow Rate FiO2 07/19/24 21:54 85 07/19/24 21:24 98.1 16 141/75 (97) 95 07/19/24 21:24 Room Air* 0 21 Physical Exam General: Awake, alert and oriented. No acute distress. Skin: Skin in warm, dry and intact. Appropriate color for ethnicity. Nailbeds pink with no cyanosis. HEENT: The head is normocephalic and atraumatic. Conjunctivae are clear without exudates or hemorrhage. Sclera is non-icteric. EOM are intact. No signs of nystagmus. Eyelids are normal in appearance without swelling or lesions. Oral mucosa is pink and moist Neck: The neck is supple with normal range of motion. No JVD. Cardiac: Heart rate and rhythm are normal. No murmurs, gallops, or rubs are auscultated. Respiratory: No signs of respiratory distress. Lung sounds are clear in all lobes bilaterally without rales, ronchi, or wheezes. Abdominal: Abdomen is soft, non-tender without distention. Bowel sounds are present and normoactive in all four quadrants. Extremities: Upper and lower extremities are atraumatic in appearance without deformity or edema. Neurological: The patient is awake, alert and oriented to person, place, and time with normal speech. Speech is clear. There is no facial asymmetry. Psychiatric: Appropriate mood and affect. Good judgement and insight. No visual or auditory hallucinations. Past Medical History PAST MEDICAL HISTORY: DM, PE Past Medical History (Other): DVT right leg Surgical History: Denies all surgeries Family History Family History: Reviewed,noncontributory to illness Social History Smoker: Non-Smoker Alcohol: Denies ETOH Use Drugs: Denies Drug Use Lives In: Home Was a procedure done? Was a procedure done?: No EKG EKG : Pulse Rate (adult): 85 Cardiac Rhythm: NSR Comments Left anterior fascicular block Differential Dx Considerations may include: Anemia, electrolyte imbalance, pulmonary emboli, anxiety X-Ray, Labs, Meds, VS Vital Signs Date Time Temp Pulse Resp B/P (MAP) Pulse Ox O2 Delivery O2 Flow Rate FiO2 07/19/24 21:54 85 07/19/24 21:48 85 07/19/24 21:24 98.1 89 16 141/75 (97) 95 07/19/24 21:24 16 95 Room Air* 0 21 Lab Test 07/20/24 00:20 07/19/24 23:18 07/19/24 22:32 07/19/24 21:40 Range/Units Troponin I High Sensitivity 8 7 7 </=54 ng/L Blood Gas Specimen Type Arterial Blood Gas Sample Site Right radial Blood Gas Patient Temperature 37.0 Arterial Blood Date Drawn [id number] Arterial Blood pH 7.433 7.350-7.450 Arterial Blood Partial Pressure CO2 36.9 35.0-48.0 mmHg Arterial Blood Partial Pressure O2 77.7 L 83.0-108.0 mmHg Arterial Blood HCO3 24.1 21.0-28.0 mmol/L Arterial Blood Oxygen Saturation 95.4 94.0-98.0 % Arterial Blood Base Excess 0.3 -2.0-3.0 mmol/L Arterial Blood Oxyhemoglobin 94.4 94.0-98.0 % Arterial Blood Carboxyhemoglobin 0.6 0.5-1.5 % Arterial Blood Methemoglobin 0.5 0.0-1.5 % Robb Test Yes Blood Gas Total Hemoglobin 16.30 13.5-17.5 g/dL Blood Gas Modality Room air FiO2 % 21.0 Specimen Drawn By Sherlyn torres Magnesium Level 2.0 1.6-2.6 mg/dL White Blood Count 10.8 4.4-10.8 10^3/uL Red Blood Count 6.10 H 4.5-5.90 10^6/uL Hemoglobin 15.9 13.5-17.5 g/dL Hematocrit 48.4 41.0-53.0 % Mean Corpuscular Volume 79.3 L 80.0-100.0 fL Mean Corpuscular Hemoglobin 26.0 L 28.0-32.0 pg Mean Corpuscular Hemoglobin Concent 32.8 32.0-36.0 g/dL Red Cell Distribution Width 14.5 H 11.8-14.3 % Platelet Count 259 140-450 10^3/uL Mean Platelet Volume 8.3 6.9-10.8 fL Neutrophils (%) (Auto) 60.8 37.0-80.0 % Lymphocytes (%) (Auto) 27.9 10.0-50.0 % Monocytes (%) (Auto) 7.2 0.0-12.0 % Eosinophils (%) (Auto) 2.9 0.0-7.0 % Basophils (%) (Auto) 1.2 0.0-2.0 % Neutrophils # (Auto) 6.6 1.6-8.6 10 ^3/uL Lymphocytes # (Auto) 3.0 0.4-5.4 10 ^3/uL Monocytes # (Auto) 0.8 0-1.3 10 ^3/uL Eosinophils # (Auto) 0.3 0-0.8 10 ^3/uL Basophils # (Auto) 0.1 0-0.2 10 ^3/uL Nucleated Red Blood Cells 0.1 % Prothrombin Time 11.1 9.3-11.8 sec Prothrombin Time INR 1.05 0.9-1.15 D-Dimer, Quantitative 0.39 0.0-0.49 mg/L FEU Sodium Level 139 136-145 mmol/L Potassium Level 3.9 3.5-5.1 mmol/L Chloride Level 104 98-107 mmol/L Carbon Dioxide Level 30 20-31 mmol/L Anion Gap 5 5-15 Blood Urea Nitrogen 17 9-23 mg/dL Creatinine 1.09 0.700-1.30 mg/dL Glomerular Filtration Rate Calc 80 >90 mL/min BUN/Creatinine Ratio 15.6 10.0-20.0 Serum Glucose 420 *H 74-106 mg/dL Calcium Level 9.2 8.7-10.4 mg/dL Total Bilirubin 0.3 0.2-1.0 mg/dL Aspartate Amino Transferase (AST) 13 13-40 U/L Alanine Aminotransferase (ALT) 38 7-40 U/L Alkaline Phosphatase 183 H 46-116 U/L B-Type Natriuretic Peptide 13.58 0-100 pg/mL Total Protein 7.4 5.7-8.2 g/dL Albumin 4.2 3.2-4.8 g/dL Beta-Hydroxybutyric Acid 0.107 < 0.4 mmol/L Test 07/19/24 21:32 07/19/24 21:30 Range/Units Influenza Type A Antigen Negative Negative Influenza Type B Antigen Negative Negative SARS-CoV-2 Antigen (Rapid) Negative NEGATIVE Urine Color Light-yellow Yellow Urine Clarity Clear Clear Urine pH 5.5 5.0-9.0 Urine Specific [place] 1.035 1.001-1.035 Urine Protein Negative Negative Urine Ketones Negative Negative Urine Blood Negative Negative /uL Urine Nitrite Negative Negative Urine Bilirubin Negative Negative Urine Urobilinogen Normal Negative mg/dL Urine Leukocyte Esterase Negative Negative /uL Urine RBC None seen 0 - 3 /hpf Urine Microscopic WBC 3 0-3 /HPF Urine Squamous Epithelial Cells Few <5 /hpf Urine Bacteria None seen None Seen /hpf Urine Glucose 4+ H Normal mg/dL Time of 1ST Reevaluation: 21:48 Reevaluation 1ST: Unchanged Patient Education/Counseling: Diagnosis, Treatment Family Education/Counseling: No Family Present Departure 1 Departure Time of Disposition: 22:59 Impression: Primary Impression: Hyperglycemia Additional Impression: Chest pain Disposition: 01 HOME / SELF CARE / HOMELESS Condition: Stable Additional Instructions: ED DISCHARGE INSTRUCTIONS Instructions: Please read all instructions provided in this packet carefully. Although you have been discharged from the Emergency Department, this does not mean that you have a "clean bill of health". []No definitive diagnosis for your symptoms has been made today. It is possible that you are in the process of developing a serious illness. This is why you must return to the ED without fail if any new or worsening symptoms (especially if your symptoms include chest pain, trouble breathing, abdominal pain, fever, headache, confusion, trouble seeing, or trouble walking) It is also very important that you see a primary care doctor within the next 3-5 days to follow up. If you are unable to get an appointment, return to the ED for re-evaluation. Diabetes: Preventing High Blood Sugar Emergencies Introduction High blood sugar in diabetes occurs when the sugar (glucose) level in the blood rises above normal. It is also called hyperglycemia. When you have diabetes, high blood sugar may be caused by not getting enough insulin or missing your diabetes medicine. It may also be caused by eating too much food, skipping exercise, or being ill or stressed. Unlike low blood sugar, high blood sugar usually happens slowly over hours or days. Blood sugar levels above your target range may make you feel tired and thirsty. If your blood sugar keeps rising, your kidneys will make more urine and you can get dehydrated . Signs of dehydration include being thirstier than usu al and having darker urine than usual. Without treatment, severe dehydration can be life-threatening. Over time, high blood sugar can damage the eyes, heart, kidneys, blood vessels, and nerves. Watch for symptoms of high blood sugar. Symptoms include feeling very tired or thirsty and urinating more often than usual. As long as you notice the symptoms, you will probably have time to treat high blood sugar so that you can prevent an emergency. Three things can help you prevent high blood sugar problems: Test your blood sugar often, especially if you are sick or not following your normal routine. Testing lets you see when your blood sugar is above your target range, even if you don't have symptoms. Then you can treat it early. Call your doctor if you often have high blood sugar or your blood sugar is often above your target range. Your medicine may need to be adjusted or changed. Drink extra water or drinks that don't have caffeine or sugar to prevent dehydration. How do you prevent high blood sugar emergencies? Treat infections early Infections that aren't treated (such as urinary tract infections, pneumonia, and skin infections) can raise your risk for a high blood sugar emergency. Be prepared Know the symptoms of high blood sugar. They include feeling very thirsty, feeling very tired, and urinating more than usual. Post a list of the symptoms in a place where you can see it often, such as on your refrigerator door. Add any symptoms you have noticed that may not be on the list. Make sure other people know the symptoms. Teach them what to do in case of an emergency. Check your blood sugar at home often, especially if you are sick or not following your normal routine. If you don't have a blood sugar meter, talk with your doctor about getting one. It is easy to miss the early symptoms, especially if you urinate more than usual but aren't more thirsty. Testing your blood sugar at home will help you know when it is high, even if you don't notice symptoms. Teach others (at work and at home) the symptoms of high blood sugar. Teach them to call 911 if you are unconscious or too sick to check your own blood sugar. Wear medical identification. Have a medical alert bracelet or other form of medical jewelry with you at all times. This is very important in case you are too sick or injured to speak for yourself. You can find medical identification at a [employer] or on the Internet. If you take insulin, test for ketones, especially if your blood sugar is high. Make a plan. Usually people who take insulin need to take extra fast-acting insulin when their blood sugar levels are high. Talk with your doctor about how much to take. This depends on your blood sugar level (sliding scale). Take your medicines as prescribed. Don't skip diabetes medicine or insulin doses without first talking with your doctor. Treat high blood sugar early The best way to prevent high blood sugar emergencies is to treat high blood sugar as soon as you have symptoms or when your blood sugar is well above your target range (for example, 200 mg/dL or higher). Follow your doctor's instructions for the steps for dealing with high blood sugar. Post the steps in a handy place at home and work. Make sure other people know what to do if you are unable to treat high blood sugar. Keep a record of high blood sugar levels. Write down your symptoms and how you treated them. And take the record with you when you see your doctor. Call your doctor. Let your doctor know if you have high blood sugar problems. Your diabetes medicine may need to be adjusted or changed. If you take insulin, your dose of insulin may need to be increased. Drink plenty of liquids If your blood sugar levels are above your target range, drink extra liquids. This helps replace the fluids lost through your urine. Water and sugar-free drinks are best. Avoid caffeinated drinks, alcohol, and soda pop. And avoid other drinks that have a lot of sugar, such as fruit juice. e-Prescriptions Metformin Hydrochloride (Metformin Hcl) 500 Mg Tab 500 MG PO DAILY for 15 Days, #15 TAB Prov: WENCESLAO GLEASON MD 07/20/24 Comments 58-year-old male who presented with chest pain, shortness of breath. Patient has a history of diabetes, only on metformin. Blood glucose today is 420. No DKA. IV fluids, insulin, potassium initiated in the emergency department. Patient admitted for further treatment, evaluation and monitoring. Extensive evaluation was performed in attempt to identify or rule out: (See differential diagnosis section) The following tests were ordered, and results were reviewed by me: (See diagnostic results section) The following test were independently interpreted by me: EKG, chest x-ray I reviewed and agreed with the following test results read by other providers: Chest x-ray I reviewed the following notes from the pt's past medical encounters: (None available at this time) Additional information was gathered from interviewing the following independent historians: N/A Discussion of management or test interpretation with external physician/other qualified health director of primary care: KATY Palacios requested admission however he requests that patient be discharged home to follow up as an outpatient after treatment with IV fluids and insulin. Addressed an acute or chronic illness that poses a threat to life or bodily function: Chest pain, hyperglycemia, uncontrolled diabetes mellitus Decision regarding hospitalization or escalation of hospital level of care: Risk and benefits of admission for further treatment of patient's condition was considered. Due to patient's current clinical condition, high risk of decline and poor outcome if discharged and need for further inpatient management and monitoring, patient will be admitted to the hospital. Drug therapy requiring intensive monitoring for toxicity: IV contrast Parenteral controlled substances: N/A Decision regarding elective major surgery with identified patient or procedure risk factors: N/A Decision regarding emergency major surgery: N/A Decision not to resuscitate or to de-escalate care because of poor prognosis: N/A Diagnosis or treatment significantly limited by social determinants of health: N/A Critical Care Note Critical Care Time?: No Stability Stability form required: No Heart Score Heart Score: Heart Score Response (Comments) Value History Slightly Suspicious 0 EKG Repolarization Disturb 1 Age 45-64 1 Risk Factors 1 or 2 risk factors 1 Troponin Normal limit 0 Total 3 I personally scribed for WENCESLAO GLEASON MD ([email or web address]) on 07/19/24 at 21:54. Electronically submitted by Emanuel Wall ([email or web address]). WENCESLAO GLEASON MD Jul 19, 2024 21:54
--- NOTE | 2024-07-19 21:58 | DVH ---
CHEST RADIOGRAPH Indication: Chest pain, history of PE Technique: Single frontal view of the chest was obtained Comparison: CHEST PORTABLE on DOS: 04/09/20, CHEST PORTABLE on DOS: 04/08/20 FINDINGS: Heart size is normal. Trachea is midline. Anu is sharp. Mainstem bronchi are well aerated there is mild pulmonary vascular prominence probably related to patient's body habitus.. No consolidates or effusions are seen. IMPRESSION: 1. Mild pulmonary vascular prominence
[2024-07-19 22:02] LABS: Eosinophils # (auto) 0.3 10 ^3/uL (0-0.8); Hematocrit 48.4 % (41.0-53.0)
[2024-07-19 22:04] LABS: Basophils # (auto) 0.1 10 ^3/uL (0-0.2); Basophils % (auto) 1.2 % (0.0-2.0); Eosinophils % (auto) 2.9 % (0.0-7.0); Hemoglobin 15.9 g/dL (13.5-17.5); Lymphocytes % (auto) 27.9 % (10.0-50.0); Mean Corpuscular Hgb Conc. 32.8 g/dL (32.0-36.0); Mean Corpuscular Volume 79.3 fL (80.0-100.0); Monocytes # (auto) 0.8 10 ^3/uL (0-1.3); Monocytes % (auto) 7.2 % (0.0-12.0); Neutrophils # (auto) 6.6 10 ^3/uL (1.6-8.6); Neutrophils % (auto) 60.8 % (37.0-80.0); Nucleated Red Blood Cells % 0.1 %; Platelet Count (auto) 259 10^3/uL (140-450); Red Cell Distribution Width 14.5 % (11.8-14.3); White Blood Cell 10.8 10^3/uL (4.4-10.8)
[2024-07-19 22:20] LABS: INR 1.05 (0.9-1.15); Prothrombin Time 11.1 sec (9.3-11.8)
[2024-07-19 22:21] LABS: Alanine Aminotransferase 38 U/L (7-40); Albumin 4.2 g/dL (3.2-4.8); Anion Gap 5 (5-15); BUN/Creatinine Ratio 15.6 (10.0-20.0); Blood Urea Nitrogen 17 mg/dL (9-23); Calcium 9.2 mg/dL (8.7-10.4); Carbon Dioxide 30 mmol/L (20-31); Chloride 104 mmol/L (98-107); Potassium 3.9 mmol/L (3.5-5.1); Sodium 139 mmol/L (136-145); Total Protein 7.4 g/dL (5.7-8.2)
[2024-07-19 22:31] LABS: Alkaline Phosphatase 183 U/L (46-116); Aspartate Aminotransferase 13 U/L (13-40)
[2024-07-19 22:32] LABS: Bilirubin, Total 0.3 mg/dL (0.2-1.0)
[2024-07-19 22:33] LABS: Glucose 420 mg/dL (74-106)
[2024-07-19 23:19] LABS: Urine Bacteria None Seen /hpf (None Seen)
[2024-07-19 23:24] LABS: Rapid Influenza A Negative (Negative); Rapid Influenza B Negative (Negative)
[2024-07-19 23:25] LABS: COVID19 ANTIGEN SOFIA FIA NEGATIVE (NEGATIVE)
[2024-07-19 23:27] LABS: Urine Blood Negative /uL (Negative); Urine Clarity Clear (Clear); Urine Color Light-Yellow (Yellow); Urine Protein, UAD Negative (Negative); Urine Specific Gravity 1.035 (1.001-1.035); Urine Squamous Epithelial Cell FEW /hpf (<5); Urine Urobilinogen Normal (Negative); Urine WBC 3 /HPF (0-3); Urine pH 5.5 (5.0-9.0)
[2024-07-19 23:29] LABS: Base Excess 0.3 mmol/L (-2.0-3.0)
[2024-07-20] MEDS ORDERED: METF-370 PO (00:44)
[2024-07-20 01:45] VITALS: BP 137/76; TEMP 98.1
[2024-07-20] MEDS: IOHEXOL 350 MG/ML 100ML IJ ONE (01:48)
[2024-07-20] MEDS: InsuLIN REG 1unit/0.01ml Soln (100units/ml) IV ONE (01:48)
[2024-07-20] MEDS: POTASSIUM CHL 20MEQ/100ML 100 ML IV ONE (01:52)
[2024-07-20] MEDS: SODIUM CHLORIDE 0.9% 1,000 ML IV ONE (01:55)
[2024-07-20 01:59] VITALS: PULSE 83; RESP 17; O2SAT 96
--- NOTE | 2024-07-20 04:19 | DVH ---
INDICATION: Hx PE r/o TECHNIQUE: Multidetector CTA of the chest was performed of the chest with 100 cc of intravenous contr ast. PULMONARY ANGIOGRAPHY PROTOCOL was utilized using a bolus-tracking technique centered on the agata n pulmonary artery. Axial, coronal and sagittal multiplanar and MIP reformats were performed. Radiation Dose Information: CT Dose: CTDI volume is 29.2 mGy. Dose-length product is 2376 mGy*cm The dose indicators for CT are the volume Computed Tomography (CT) Dose Index (CTDIvol) and the Dose Length Product (DLP), and are measured in units of mGy and mGy-cm, respectively. These indicators are not patient dose, but values generated from the CT scanner acquisition factors. The report includes radiation exposure data for exposures received during this examination. Comparison: Chest x-ray same day Findings: Evaluation of the pulmonary arteries demonstrates no evidence of focal filling defect to suggest pulm onary embolus. There is poor filling of subsegmental branches. The thoracic aorta appears normal in c aliber and contour. The heart appears prominent size. No pericardial or pleural effusion. Pulmonary motion limits evaluation of the pulmonary parenchyma without focal consolidation. The thyroid gland appears enlarged. Visualized portions of the upper abdomen demonstrate cirrhotic appearance of the liver. There is cho lelithiasis. No suspicious osseous lesion. IMPRESSION: 1. No evidence of pulmonary embolism. 2. Hepatic cirrhosis, enlarged thyroid, cholelithiasis. HS:Y
--- NOTE | 2024-07-21 04:36 | ECG ---
[facility] Test Date: 2024-07-19 Test Time: 21:37:26 Pat Name: RADHA WALKER Department: ER Room: Gender: M Psych Nurse: KAZ : [id number] Requested By: WENCESLAO GLEASON Order Number: [id number] Reading MD: Measurements Intervals [place] Rate: 85 P: 9 CT: 135 QRS: -42 QRSD: 100 T: 45 QT: 386 QTc: 459 Interpretive Statements Sinus rhythm Left anterior fascicular block Please click the below link to view image of tracing.
== END 2024-07-20 03:12 | disposition home or self-care (01) ==
LOC: ER 21:12
DX: R07.89 Other chest pain (principal); E11.65 Type 2 diabetes mellitus with hyperglycemia; Z88.6 Allergy status to analgesic agent; Z88.8 Allergy status to other drugs, medicaments and biological substances; Z79.899 Other long term (current) drug therapy; Z20.822 Contact with and (suspected) exposure to COVID-19
CPT/HCPCS: 36415; 36600; 71045; 71275; 80053; 81001; 82010; 82805; 82947; 83735; 83880; 84484; 85025; 85379; 85610; 87426; 87804; 93005; 96361; 96374; 99285; J1815; J7030; Q9967; 82962